=== PATIENT | female | born 1960 | race African-American/Black ===

== ENCOUNTER 2019-08-03 23:01 | Emergency (ER) | payer SELFPAY ==
[~2019-08-03] VITALS: Ht 162.6 cm; Wt 80.7 kg
[2019-08-03 23:03] VITALS: BP 148/95
[2019-08-03] MEDS ORDERED: HYDROCORTISONE 1% CREAM 28.35 GM TUBE TP ONE (23:21)
[2019-08-03] MEDS ORDERED: diphenhydrAMINE HCL 50 MG CAPSULE ONE (23:28)
[2019-08-03] MEDS ORDERED: HYDROCORTISONE 2.5% CREAM 28.4 GM TUBE TP SCH (23:30)
[2019-08-03] MEDS ORDERED: diphenhydrAMINE HCL 25 MG CAPSULE PO ONE (23:30)
== END 2019-08-03 23:36 | disposition home or self-care (01) ==
LOC: ER 23:05
DX: S40.862A Insect bite (nonvenomous) of left upper arm, initial encounter (principal); S40.861A Insect bite (nonvenomous) of right upper arm, initial encounter; S80.862A Insect bite (nonvenomous), left lower leg, initial encounter; S80.861A Insect bite (nonvenomous), right lower leg, initial encounter; S10.86XA Insect bite of other specified part of neck, initial encounter; W57.XXXA Bitten or stung by nonvenomous insect and other nonvenomous arthropods, initial encounter; Y93.89 Activity, other specified; Y92.89 Other specified places as the place of occurrence of the external cause; Y99.8 Other external cause status
CPT/HCPCS: 99283; Q0163